=== PATIENT | female | born 1980 | race Caucasian/White ===

== ENCOUNTER 2017-04-04 02:41 | Emergency (ER) | payer BC, OTHER ==
[2017-04-04 02:49] VITALS: BP 113/68; PULSE 84; RESP 18
[2017-04-04] MEDS ORDERED: IPRATROPIUM-ALBUTEROL 3 ML NEB INHALATION STA (02:56)
[2017-04-04] MEDS ORDERED: CHLORPHEN-HYDROcod 8-10mg/5ml 5 ML ORAL.SYRG PO STA (02:56)
[2017-04-04] MEDS ORDERED: ACETAMINOPHEN TAB 500 MG TAB PO STA (02:57)
--- NOTE | 2017-04-04 03:18 | XR ---
EXAM: XR Chest, 2 Views CLINICAL HISTORY: Cough/fever TECHNIQUE: Frontal and lateral views of the chest. COMPARISON: No relevant prior studies available. FINDINGS: Lungs: Unremarkable. No consolidation. Pleural space: Unremarkable. No pneumothorax. Heart: Unremarkable. No cardiomegaly. Mediastinum: Unremarkable. Bones/joints: Unremarkable. Upper abdomen: Gas-filled splenic flexure is noted without evidence of abnormal distention. Surgical clips are seen in the right upper quadrant, likely from prior cholecystectomy. IMPRESSION: No acute findings.
--- NOTE | 2017-04-04 03:23 | ED ---
URI HPI - General Chief Complaint: Upper Respiratory Infection Stated Complaint: cough Time Seen by Provider: 04/04/17 02:52 Source: patient, RN notes reviewed Mode of arrival: ambulatory Limitations: no limitations - History of Present Illness Initial Comments: 36-year-old female presented emergency department for cough and cold like symptoms for last 3-4 days. Patient states symptoms progressively getting worse. Patient was seen at [facility] and was diagnosed with acute bronchitis. Patient was given azithromycin, Tessalon Perles. She states the cough is worst part of her symptoms. She states she cannot stop coughing. Patient is a smoker. Patient denies any known fever states that she's felt hot and cold. Patient has low-grade temperature. Patient denies any neck pain, neck stiffness, headache or dizziness. Denies any ear pain, sore throat, nausea vomiting diarrhea constipation. - Related Data Previous Rx's Medication Instructions Recorded CHLORPHEN-HYDROcod 8-10mg/5ml 5 ml PO Q12HR #120 ml 04/04/17 [Tussionex] methylPREDNISolone [Medrol Dose 4 mg PO DIRECTED #1 pack 04/04/17 Pack] Allergies Allergy/AdvReac Type Severity Reaction Status Date / Time Penicillins Allergy Unknown Verified 04/04/17 02:49 Childhood Review of Systems ROS Statement: Those systems with pertinent positive or pertinent negative responses have been documented in the HPI. ROS Other: All systems not noted in ROS Statement are negative. Past Medical History Past Medical History: GERD/Reflux Additional Past Medical History / Comment(s): recent MRI "showed something" per pt., c/o abd. pain & cramping when eats, past hx. heart murmur, 2 teeth pulled last week History of Any Multi-Drug Resistant Organisms: None Reported Past Surgical History: Cholecystectomy, Tubal Ligation, Uterine Ablation Additional Past Surgical History / Comment(s): uterine ablation Past Anesthesia/Blood Transfusion Reactions: Postoperative Nausea & Vomiting ( PONV) Additional Past Anesthesia/Blood Transfusion Reaction / Comment(s): slow to wake up Past Psychological History: No Psychological Hx Reported Smoking Status: Current every day smoker Past Alcohol Use History: Rare Past Drug Use History: None Reported General Exam Limitations: no limitations General appearance: alert, in no apparent distress Head exam: Present: atraumatic, normocephalic, normal inspection Eye exam: Present: normal appearance, PERRL, EOMI. Absent: scleral icterus, conjunctival injection, periorbital swelling ENT exam: Present: normal exam, normal oropharynx, mucous membranes moist, TM's normal bilaterally, normal external ear exam Neck exam: Present: normal inspection, full ROM. Absent: tenderness, meningismus, lymphadenopathy Respiratory exam: Present: wheezes. Absent: normal lung sounds bilaterally, respiratory distress, rales, rhonchi, stridor Cardiovascular Exam: Present: regular rate, normal rhythm, normal heart sounds. Absent: systolic murmur, diastolic murmur, rubs, gallop, clicks Neurological exam: Present: alert, oriented X3, CN II-XII intact Skin exam: Present: warm, dry, intact, normal color. Absent: rash Course Vital Signs 04/04/17 04/04/17 02:46 03:16 Temperature 100.4 F H Pulse Rate 84 84 Respiratory 18 Rate Blood Pressure 113/68 O2 Sat by Pulse 96 Oximetry Medical Decision Making - Medical Decision Making 36-year-old female presented was from for cough and cold-like symptoms. Patient 's chest x-ray does not show acute abnormality. Patient has acute bronchitis, nicotine dependence. Patient be given tussinex cough syrup. Patient given steroids for her bronchitis. Disposition Clinical Impression: Bronchitis Disposition: HOME SELF-CARE Condition: Stable Instructions: Acute Bronchitis (ED) Additional Instructions: Please return to the Emergency Department if symptoms worsen or any other concerns. Prescriptions: CHLORPHEN-HYDROcod 8-10mg/5ml [Tussionex] 5 ml PO Q12HR #120 ml methylPREDNISolone [Medrol Dose Pack] 4 mg PO DIRECTED #1 pack Referrals: Rossi Pena DO [Primary Care Provider] - 1-2 days Time of Disposition: 03:23
[2017-04-04 03:33] VITALS: TEMP 99
== END 2017-04-04 03:31 | disposition home or self-care (01) ==
LOC: EC 02:41
DX: J20.9 Acute bronchitis, unspecified (principal); F17.200 Nicotine dependence, unspecified, uncomplicated; Z88.0 Allergy status to penicillin
CPT/HCPCS: 71020; 94640; 99283

== ENCOUNTER → 2017-12-31 | Outpatient (CLI) | payer OTHER ==
--- NOTE | 2017-12-31 19:37 | US ---
EXAMINATION TYPE: US thyroid st tissue head/neck DATE OF EXAM: 12/31/2017 COMPARISON: 04/29/2016 CLINICAL HISTORY: E04.1 THYROID NODULE. follow up nodules, difficult swallowing, no thyroid medicatio n GLAND SIZE: Right Lobe: 5.2 x 2.1 x 2.2 cm Overall Parenchyma: homogenous Left Lobe: 5.2 x 1.9 x 1.8 cm Overall Parenchyma: homogeneous Isthmus Thickness: 0.4 cm NODULES RIGHT: # of nodules measured on right: 2 1. 0.7 X 0.6 x 0.5 cm hypoechoic solid nodule at the upper pole with well-defined margins. This no dule is taller than wide and shows intranodular vascularity. Prior size: 0.8 x 0.5 x 0.6 cm 2. 0.5 X 0.3 x 0.3 cm hypoechoic cystic nodule at the lower pole with well-defined margins. This no dule is taller than wide and shows no intranodular vascularity. Prior size: 0.3 x 0.3 x 0.3 cm LEFT: # of nodules measured on left: 1 1. 0.5 X 0.4 x 0.3 cm hypoechoic nodule at the lower pole with well-defined margins. This nodule i s taller than wide and shows no intranodular vascularity. Prior size: 0.4 x 0.4 x 0.3 cm ISTHMUS: # of nodules measured in the isthmus: 0 Bilateral neck scanned, no evidence of lymphadenopathy. Bilateral thyroid lobes appear enlarged IMPRESSION: Multinodular goiter. No dominant thyroid mass. There is overall no adverse change compared to old birgitnahed xavier
== END | disposition home or self-care (01) ==
LOC: RADUSWWP 16:41
PROVIDERS: ATTEND Family Medicine
DX: E04.2 Nontoxic multinodular goiter (principal)
CPT/HCPCS: 76536

== ENCOUNTER → 2018-02-23 | Outpatient (CLI) | payer OTHER ==
--- NOTE | 2018-02-24 12:06 | NM ---
EXAMINATION TYPE: NM thyroid image w uptake DATE OF EXAM: 02/24/2018 COMPARISON: NONE HISTORY: Localized swelling mass and lump TECHNIQUE: Thyroid iodine images performed after the oral administration of 289 uCi 1-123 Capsule. FINDINGS: There is normal distribution of activity throughout the gland. Thyroid uptake appears jillian l. Suprasternal notch is marked. Suspicious photopenic defect or focal hot nodules not identified. IMPRESSION: Normal thyroid scan and uptake.
== END | disposition home or self-care (01) ==
LOC: RADNMMAIN 10:41
PROVIDERS: ATTEND Family Medicine
DX: E04.1 Nontoxic single thyroid nodule (principal); Z88.0 Allergy status to penicillin; Z88.8 Allergy status to other drugs, medicaments and biological substances
CPT/HCPCS: 78014; A9516

== ENCOUNTER 2018-05-16 16:58 | Emergency (ER) | payer OTHER ==
[2018-05-16 17:05] VITALS: RESP 18
[2018-05-16 18:09] LABS: Basophils # (A) 0.1 k/uL (0-0.2); Basophils % (A) 1 %; Eosinophils # (A) 0.1 k/uL (0-0.7); Eosinophils % (A) 2 %; HCT 43.2 % (34.0-46.0); HGB 13.8 gm/dL (11.4-16.0); Lymphocytes # (A) 2.6 k/uL (1.0-4.8); Lymphocytes % (A) 41 %; MCH 27.8 pg (25.0-35.0); MCHC 31.9 g/dL (31.0-37.0); MCV 87.1 fL (80.0-100.0); Mean Platelet Volume 6.5; Monocytes # (A) 0.3 k/uL (0-1.0); Monocytes % (A) 5 %; Neutrophils # (A) 3.2 k/uL (1.3-7.7); Neutrophils % (A) 50 %; Platelet Count 289 k/uL (150-450); RBC 4.97 m/uL (3.80-5.40); RDW 12.5 % (11.5-15.5); WBC 6.4 k/uL (3.8-10.6)
[2018-05-16 18:19] LABS: INR 1.2 (<1.2); Prothrombin Time 11.3 sec (9.0-12.0)
[2018-05-16 18:23] LABS: ALT 27 U/L (9-52); AST 18 U/L (14-36); Albumin 4.3 g/dL (3.5-5.0); Alkaline Phosphatase 42 U/L (38-126); Anion Gap 10 mmol/L; Blood Urea Nitrogen 6 mg/dL (7-17); Calcium 9.1 mg/dL (8.4-10.2); Carbon Dioxide 26 mmol/L (22-30); Chloride 104 mmol/L (98-107); Glucose 103 mg/dL (74-99); Magnesium 1.9 mg/dL (1.6-2.3); Potassium 3.4 mmol/L (3.5-5.1); Sodium 140 mmol/L (137-145); Total Bilirubin 0.3 mg/dL (0.2-1.3); Total Protein 6.6 g/dL (6.3-8.2)
--- NOTE | 2018-05-16 18:23 | XR ---
EXAMINATION TYPE: XR chest 2V DATE OF EXAM: 05/16/2018 COMPARISON: 04/04/2017 HISTORY: Chest pain TECHNIQUE: Frontal and lateral views of the chest are obtained. FINDINGS: Heart and mediastinum are normal. Lungs are clear. Diaphragm is normal. Bony thorax appear s normal. IMPRESSION: Normal chest. No change.
[2018-05-16 18:24] LABS: Creatine Kinase 64 U/L (30-135)
[2018-05-16 18:48] LABS: Creatine Kinase MB 0.5 ng/mL (0.0-2.4); Troponin I <0.012 ng/mL (0.000-0.034)
--- NOTE | 2018-05-16 19:17 | ED ---
General Adult HPI - General Chief complaint: Chest Pain Stated complaint: Chest Pain Time Seen by Provider: 05/16/18 17:11 Source: patient Mode of arrival: ambulatory Limitations: no limitations - History of Present Illness Initial comments: Umm is a 38-year-old female who presents the emergency department today for evaluation of intermittent chest pain and palpitations. Patient reports she's been experiencing this intermittently for approximately 4 months, she was evaluated by her primary care physician for this and was given propanolol to take as needed for palpitations. Patient reports that over the past week she's had multiple episodes of feeling as though her heart was racing and beating very fast. She reports feeling a tightness in her chest is experiencing these palpitations. These episodes occur without provocation, they tend to be more frequent at nighttime when she is laying in bed. She cannot identify any exacerbating or relieving factors. She has taken the propanolol not every time and has only minimal improvement. Opticians are not associated with any diaphoresis or near syncope. The patient has no cardiac history, no family history of early cardiac disease. She has no history of DVT or PE in the past. No family history of clotting disorder that she is aware of. Patient does report she has a history of thyroid disorder but does not know what the diagnosis or medication is, she believes she has an overactive thyroid. - Related Data Home Medications Medication Instructions Recorded Confirmed Acetaminophen [Tylenol] 500 mg PO Q4-6H PRN 05/16/18 05/16/18 Propranolol HCl 40 mg PO BID 05/16/18 05/16/18 Allergies Allergy/AdvReac Type Severity Reaction Status Date / Time metoclopramide [From Reglan] Allergy Hallucinati Verified 05/16/18 17:58 ons Penicillins Allergy Unknown Verified 05/16/18 17:58 Childhood Review of Systems ROS Statement: Those systems with pertinent positive or pertinent negative responses have been documented in the HPI. ROS Other: All systems not noted in ROS Statement are negative. Past Medical History Past Medical History: GERD/Reflux, Thyroid Disorder Additional Past Medical History / Comment(s): recent MRI "showed something" per pt., c/o abd. pain & cramping when eats, past hx. heart murmur, History of Any Multi-Drug Resistant Organisms: None Reported Past Surgical History: Cholecystectomy, Tubal Ligation, Uterine Ablation Additional Past Surgical History / Comment(s): uterine ablation Past Anesthesia/Blood Transfusion Reactions: Postoperative Nausea & Vomiting ( PONV) Additional Past Anesthesia/Blood Transfusion Reaction / Comment(s): slow to wake up Past Psychological History: No Psychological Hx Reported Smoking Status: Current every day smoker Past Alcohol Use History: Rare Past Drug Use History: None Reported General Exam - General Exam Comments Initial Comments: GENERAL: Patient is well-developed and well-nourished. Patient is nontoxic and well- hydrated and is in no distress. HENT: Normocephalic, Atraumatic. Neck is soft and supple. No significant lymphadenopathy is noted. Oropharynx is clear. Moist mucous membranes. Neck has full range of motion without eliciting any pain. Thyroid is not palpable EYES: The sclera were anicteric and conjunctiva were pink and moist. Extraocular movements were intact and pupils were equal round and reactive to light. Eyelids were unremarkable. PULMONARY: Unlabored respirations. Good breath sounds bilaterally. No audible rales rhonchi or wheezing was noted. CARDIOVASCULAR: There is a regular rate and rhythm without any murmurs gallops or rubs. ABDOMEN: Soft and nontender with normal bowel sounds. SKIN: Skin is clear with no lesions or rashes and otherwise unremarkable. NEUROLOGIC: Patient is alert and oriented x3. Cranial nerves II through XII are grossly intact. Motor and sensory are also intact. Normal speech, volume and content. Symmetrical smile. MUSCULOSKELETAL: Normal extremities with adequate strength and full range of motion. No lower extremity swelling or edema. No calf tenderness. LYMPHATICS: No significant lymphadenopathy is noted PSYCHIATRIC: Normal psychiatric evaluation. Limitations: no limitations Limitations: no limitations Course Vital Signs 05/16/18 05/16/18 05/16/18 17:01 17:12 19:37 Temperature 98.4 F 98.5 F Pulse Rate 70 75 65 Respiratory 18 18 18 Rate Blood Pressure 143/79 132/79 114/58 O2 Sat by Pulse 99 99 99 Oximetry EKG Findings - EKG Comments: EKG Findings:: EKG obtained at 1714, rate is 74, rhythm is sinus, there is normal axis, normal intervals, ID 152, QRS 80, QTC 450, there are no acute ST elevations or depressions no evidence of acute ischemia or infarction. There is some motion artifact noted. Medical Decision Making - Medical Decision Making Patient was seen and evaluated, history is obtained from the patient EKG obtained in triage was evaluated, sinus rhythm with a rate is 74, normal axis, normal intervals, no acute ST elevations or depressions, no evidence of acute ischemia or infarction. Cardiac workup was ordered Labs with no acute findings, no elevation of troponin or d-dimer, no leukocytosis or significant anemia noted CXR with no acute findings Patient's heart score 1 for smoking Results were discussed with patient who expresses relief, questions pertaining to care were answered to the best of my ability, return parameters were discussed, I advised the patient to a local primary care physician or cardiology for further evaluation. - Lab Data Result diagrams: 05/16/18 17:20 05/16/18 17:20 Lab Results 05/16/18 05/16/18 05/16/18 Range/Units 17:20 17:20 17:20 WBC 6.4 (3.8-10.6) k/uL RBC 4.97 (3.80-5.40) m/uL Hgb 13.8 (11.4-16.0) gm/dL Hct 43.2 (34.0-46.0) % MCV 87.1 (80.0-100.0) fL MCH 27.8 (25.0-35.0) pg MCHC 31.9 (31.0-37.0) g/dL RDW 12.5 (11.5-15.5) % Plt Count 289 (150-450) k/uL Neutrophils % 50 % Lymphocytes % 41 % Monocytes % 5 % Eosinophils % 2 % Basophils % 1 % Neutrophils # 3.2 (1.3-7.7) k/uL Lymphocytes # 2.6 (1.0-4.8) k/uL Monocytes # 0.3 (0-1.0) k/uL Eosinophils # 0.1 (0-0.7) k/uL Basophils # 0.1 (0-0.2) k/uL PT (9.0-12.0) sec INR (<1.2) APTT (22.0-30.0) sec Sodium 140 (137-145) mmol/L Potassium 3.4 L (3.5-5.1) mmol/L Chloride 104 (98-107) mmol/L Carbon Dioxide 26 (22-30) mmol/L Anion Gap 10 mmol/L BUN 6 L (7-17) mg/dL Creatinine 0.60 (0.52-1.04) mg/dL Est GFR (CKD-EPI)AfAm >90 (>60 ml/min/1.73 sqM) Est GFR (CKD-EPI)NonAf >90 (>60 ml/min/1.73 sqM) Glucose 103 H (74-99) mg/dL Calcium 9.1 (8.4-10.2) mg/dL Magnesium 1.9 (1.6-2.3) mg/dL Total Bilirubin 0.3 (0.2-1.3) mg/dL AST 18 (14-36) U/L ALT 27 (9-52) U/L Alkaline Phosphatase 42 (38-126) U/L Total Creatine Kinase 64 (30-135) U/L CK-MB (CK-2) 0.5 (0.0-2.4) ng/mL CK-MB (CK-2) Rel Index 0.8 Troponin I <0.012 (0.000-0.034) ng/mL Total Protein 6.6 (6.3-8.2) g/dL Albumin 4.3 (3.5-5.0) g/dL TSH 1.120 (0.465-4.680) mIU/L 05/16/18 Range/Units 17:20 WBC (3.8-10.6) k/uL RBC (3.80-5.40) m/uL Hgb (11.4-16.0) gm/dL Hct (34.0-46.0) % MCV (80.0-100.0) fL MCH (25.0-35.0) pg MCHC (31.0-37.0) g/dL RDW (11.5-15.5) % Plt Count (150-450) k/uL Neutrophils % % Lymphocytes % % Monocytes % % Eosinophils % % Basophils % % Neutrophils # (1.3-7.7) k/uL Lymphocytes # (1.0-4.8) k/uL Monocytes # (0-1.0) k/uL Eosinophils # (0-0.7) k/uL Basophils # (0-0.2) k/uL PT 11.3 (9.0-12.0) sec INR 1.2 H (<1.2) APTT 27.0 (22.0-30.0) sec Sodium (137-145) mmol/L Potassium (3.5-5.1) mmol/L Chloride (98-107) mmol/L Carbon Dioxide (22-30) mmol/L Anion Gap mmol/L BUN (7-17) mg/dL Creatinine (0.52-1.04) mg/dL Est GFR (CKD-EPI)AfAm (>60 ml/min/1.73 sqM) Est GFR (CKD-EPI)NonAf (>60 ml/min/1.73 sqM) Glucose (74-99) mg/dL Calcium (8.4-10.2) mg/dL Magnesium (1.6-2.3) mg/dL Total Bilirubin (0.2-1.3) mg/dL AST (14-36) U/L ALT (9-52) U/L Alkaline Phosphatase (38-126) U/L Total Creatine Kinase (30-135) U/L CK-MB (CK-2) (0.0-2.4) ng/mL CK-MB (CK-2) Rel Index Troponin I (0.000-0.034) ng/mL Total Protein (6.3-8.2) g/dL Albumin (3.5-5.0) g/dL TSH (0.465-4.680) mIU/L Disposition Clinical Impression: Heart palpitations Disposition: HOME SELF-CARE Condition: Good Instructions: Palpitations (ED) Is patient prescribed a controlled substance at d/c from ED?: No Referrals: Yumiko Govea MD [Primary Care Provider] - 1-2 days Henrique Joya MD [STAFF PHYSICIAN] - 1-2 days Time of Disposition: 19:17
[2018-05-16 19:38] VITALS: BP 114/58; PULSE 65; TEMP 98.5
== END 2018-05-16 19:37 | disposition home or self-care (01) ==
LOC: EC 16:58
DX: R00.2 Palpitations (principal); R07.9 Chest pain, unspecified; F17.200 Nicotine dependence, unspecified, uncomplicated; Z79.899 Other long term (current) drug therapy; Z88.0 Allergy status to penicillin; Z88.8 Allergy status to other drugs, medicaments and biological substances
CPT/HCPCS: 36415; 71046; 80053; 82550; 82553; 83735; 84443; 84484; 85025; 85610; 85730; 93005; 99285

== ENCOUNTER → 2018-11-23 | Outpatient (CLI) | payer OTHER ==
--- NOTE | 2018-11-23 21:10 | MR ---
EXAMINATION TYPE: MR brain wo/w con DATE OF EXAM: 11/23/2018 COMPARISON: CT brain May 25, 2014 HISTORY: Diplopia TECHNIQUE: Multiplanar, multisequence images of the brain and brainstem is performed without and with IV contras t, utilizing 5.5 mL intravenous Gadavist . FINDINGS: Diffusion weighted images demonstrate no evidence of a recent infarct or other diffusion ab normality. There is no extra-axial fluid collection or significant white matter signal abnormality. The ventricular system and cisternal spaces are normal in size and appearance. The brain volume is age appropriate. Midline structures demonstrate normal morphology. The craniocervical junction appears within normal limits. Post contrast images demonstrate no abnormal enhancement. The dural venous sinuses appear pa tent. Mild eccentric mucosal thickening bilateral maxillary sinuses is redemonstrated. Globes are int act bilaterally. Rectus muscles are symmetric and felt within normal limits. IMPRESSION: No significant finding is seen to account for patient's symptoms of diplopia
== END | disposition home or self-care (01) ==
LOC: RADMRIMAIN 16:35
PROVIDERS: ATTEND Ophthalmology
DX: H53.2 Diplopia (principal)
CPT/HCPCS: 70553; A9585

== ENCOUNTER → 2019-07-19 | Outpatient (CLI) | payer OTHER ==
--- NOTE | 2019-07-19 13:23 | NM ---
EXAMINATION TYPE: NM gastric emptying static DATE OF EXAM: 07/19/2019 COMPARISON: NONE HISTORY: Abdominal pain Following administration of 2.1 mCi Tc 99m Sulfur Colloid with 4 oz. scrambled eggs, 1 piece of butte red toast, projection images of the abdomen were obtained 10 minutes post ingestion. Patient Emptying Values 1 Hour 56 % 2 Hours 70 % 3 Hours 89 % 4 Hours 99 % Gastroesophageal reflux: None IMPRESSION: Gastric emptying time: Normal. No scintigraphic evidence of gastroparesis. Gastroesophageal reflux: None Gastric emptying normal percentage values: 30 minutes: <70% of retention (> 30% emptying) suggests abnormally fast emptying. 60 minutes: <90% retention (>10% emptying) is normal; less than 30% retention (>70% emptying) suggest s abnormally rapid emptying. 90 minutes: <65% retention (> 35% emptying) is normal. 120 minutes: <60% retention (> 40% emptying) is normal. 180 minutes: <30% retention (> 70% emptying) is normal. Gastric emptying T-1/2: Solid: The normal range is 60-105 minutes Liquid only: Normal range is 10-45 minutes. Liquid only-children: At 60 minutes, normal range is 44-58 % . Liquid only-infants: At 60 minutes, normal range is 32-64 %. Additional references: Gastric Emptying Scintigraphy [email or web address]://[email or web address]
== END | disposition home or self-care (01) ==
LOC: RADNMMAIN 06:56
PROVIDERS: ATTEND Family Medicine
DX: R10.84 Generalized abdominal pain (principal)
CPT/HCPCS: 78264; A9541

== ENCOUNTER → 2019-12-04 | Outpatient (CLI) | payer OTHER | END | disposition home or self-care (01) | DX: R92.8 Other abnormal and inconclusive findings on diagnostic imaging of breast (principal) | CPT/HCPCS: 77062; 77066 ==

== ENCOUNTER 2021-05-25 15:27 | Emergency (ER) | payer OTHER ==
[2021-05-25 15:46] VITALS: BP 111/70; PULSE 83; RESP 18; TEMP 98.1
[2021-05-25] MEDS ORDERED: KETOROLAC 15 MG/ML 1 ML VIAL IVP STA (15:57)
[2021-05-25] MEDS ORDERED: SODIUM CHLORIDE 0.9% 1,000 ML IV STA (15:57)
[2021-05-25 16:30] LABS: Appearance,Urine Clear (Clear); Basophils # (A) 0.1 k/uL (0-0.2); Basophils % (A) 1 %; Bilirubin,Urine Negative (Negative); Blood,Urine Negative (Negative); Color,Urine Colorless; Eosinophils # (A) 0.2 k/uL (0-0.7); Eosinophils % (A) 3 %; Glucose,Urine (UA) Negative (Negative); HCT 45.7 % (34.0-46.0); HGB 15.2 gm/dL (11.4-16.0); Ketones,Urine Negative (Negative); Leukocyte Esterase,Urine Negative (Negative); Lymphocytes % (A) 40 %; MCH 28.8 pg (25.0-35.0); MCHC 33.3 g/dL (31.0-37.0); MCV 86.4 fL (80.0-100.0); Mean Platelet Volume 7.2; Monocytes # (A) 0.4 k/uL (0-1.0); Monocytes % (A) 5 %; Neutrophils # (A) 3.7 k/uL (1.3-7.7); Neutrophils % (A) 50 %; Nitrite,Urine Negative (Negative); Platelet Count 344 k/uL (150-450); Protein,Urine Negative (Negative); RBC 5.29 m/uL (3.80-5.40); RDW 12.6 % (11.5-15.5); Specific Gravity,Urine 1.002 (1.001-1.035); Urobilinogen,Urine <2.0 mg/dL (<2.0); WBC 7.6 k/uL (3.8-10.6)
[2021-05-25 16:37] LABS: ALT 9 U/L (4-34); AST 22 U/L (14-36); African American GFR (CKD) >90 (>60 ml/min/1.73 sqM); Albumin 4.8 g/dL (3.5-5.0); Alkaline Phosphatase 63 U/L (38-126); Amylase 55 U/L (30-110); Anion Gap 10 mmol/L; Blood Urea Nitrogen 6 mg/dL (7-17); Calcium 9.8 mg/dL (8.4-10.2); Carbon Dioxide 24 mmol/L (22-30); Chloride 104 mmol/L (98-107); Glucose 93 mg/dL (74-99); Lipase 102 U/L (23-300); Non-African American GFR(CKD) >90 (>60 ml/min/1.73 sqM); Potassium 4.2 mmol/L (3.5-5.1); Sodium 138 mmol/L (137-145); Total Bilirubin 0.3 mg/dL (0.2-1.3); Total Protein 7.4 g/dL (6.3-8.2)
--- NOTE | 2021-05-25 18:09 | CT ---
EXAMINATION TYPE: CT abdomen pelvis w con DATE OF EXAM: 05/25/2021 COMPARISON: 11/23/2014 HISTORY: Abdomen pain CT DLP: 697.5 mGycm Automated exposure control for dose reduction was used. CONTRAST: Performed with IV Contrast, patient injected with 100 mL of Isovue 300. Images from the diaphragm to the floor the pelvis with IV contrast. Lung bases are clear of infiltrate. There is no pleural effusion. Heart size is normal. There is no p ericardial effusion. There is 1 cm cyst anterior right lobe of the liver. There are clips from cholec ystectomy. The bile ducts are nondilated. Spleen stomach pancreas appear intact. There is no adrenal mass. Kidneys show satisfactory contrast opacification. There is no hydronephrosi s. Ureters are not dilated. There is no retroperitoneal adenopathy. Bladder distends smoothly. There is no inguinal hernia. There is some low density free fluid in the pelvis. Uterus is anteverted and a ppears normal. I see no pelvic mass. There is probably a 2 cm cyst on the right ovary. Delayed images show normal renal excretion. There is no mesenteric edema. There is no ascites or free air. Appendix is not definitely seen. There is no sign of thickened appendix. Cecum is low in the pelvis. The lumbar vertebra have normal alignment. Disc spaces are fairly normal. There is no compression fra cture. Posterior elements are intact. Bony pelvis is intact. Hip joints are intact. IMPRESSION: There is some low density free fluid in the pelvis which is increased compared to old exam. There is decrease in the right ovarian cyst compared to old exam.
--- NOTE | 2021-05-25 18:30 | ED ---
Abdominal Pain HPI - General Chief Complaint: Abdominal Pain Stated Complaint: abd pain, bowel problem Time Seen by Provider: 05/25/21 15:49 Source: patient, RN notes reviewed Mode of arrival: ambulatory Limitations: no limitations - History of Present Illness Initial Comments: Patient is a 41-year-old female that presents to the emergency department co mplaining of a two-week history of not being able to have bowel movement. She notes that she does go several days without having a bowel movement regularly but it seems to be worse lately. She notes she does have a history of a cholecystectomy. She also notes that she had her tubes tied. She came in due to concerns for possible constipation or blockage. She was in no apparent distress or pain while sitting up in bed during exam and interview. She denied any chest pain first breath headache nausea vomiting diarrhea constipation fever fatigue chills hematochezia melena. - Related Data Home Medications Medication Instructions Recorded Confirmed No Known Home Medications 05/25/21 05/25/21 Allergies Allergy/AdvReac Type Severity Reaction Status Date / Time metoclopramide [From Reglan] Allergy Hallucinati Verified 05/25/21 17:32 ons Penicillins Allergy Unknown Verified 05/25/21 17:32 Childhood Review of Systems ROS Statement: Those systems with pertinent positive or pertinent negative responses have been documented in the HPI. ROS Other: All systems not noted in ROS Statement are negative. Past Medical History Past Medical History: GERD/Reflux, Thyroid Disorder Additional Past Medical History / Comment(s): recent MRI "showed something" per pt., c/o abd. pain & cramping when eats, past hx. heart murmur, History of Any Multi-Drug Resistant Organisms: None Reported Past Surgical History: Cholecystectomy, Tubal Ligation, Uterine Ablation Additional Past Surgical History / Comment(s): uterine ablation Past Anesthesia/Blood Transfusion Reactions: Postoperative Nausea & Vomiting (PONV) Additional Past Anesthesia/Blood Transfusion Reaction / Comment(s): slow to wake up Past Psychological History: No Psychological Hx Reported Smoking Status: Current every day smoker Past Alcohol Use History: Rare Past Drug Use History: None Reported General Exam Limitations: no limitations General appearance: alert, in no apparent distress Head exam: Present: atraumatic, normocephalic, normal inspection Eye exam: Present: normal appearance, PERRL, EOMI. Absent: scleral icterus, conjunctival injection, periorbital swelling Neck exam: Present: normal inspection Respiratory exam: Present: normal lung sounds bilaterally. Absent: respiratory distress, wheezes, rales, rhonchi, stridor Cardiovascular Exam: Present: regular rate, normal rhythm, normal heart sounds. Absent: systolic murmur, diastolic murmur, rubs, gallop, clicks GI/Abdominal exam: Present: soft, normal bowel sounds. Absent: distended, tenderness, guarding, rebound, rigid Extremities exam: Present: normal inspection, full ROM, normal capillary refill. Absent: tenderness, pedal edema, joint swelling, calf tenderness Neurological exam: Present: alert, oriented X3 Psychiatric exam: Present: normal affect, normal mood Skin exam: Present: warm, dry, intact, normal color. Absent: rash Course Vital Signs 05/25/21 15:45 Temperature 98.1 F Pulse Rate 83 Respiratory 18 Rate Blood Pressure 111/70 O2 Sat by Pulse 100 Oximetry Medical Decision Making - Medical Decision Making 41-year-old female complaining of a two-week history of no bowel movement. Physical exam patient was nontender nondistended. Labs, 1 L normal saline, CT the abdomen and pelvis, 15 mg Toradol ordered. Labs unremarkable. CT of the abdomen pelvis shows minimal free fluid in the pelvis and a decreased right ovarian cyst. Case discussed with Dr. Cisneros, patient discharge home with follow-up to primary care and her surgeon. - Lab Data Result diagrams: 05/25/21 16:08 05/25/21 16:08 Lab Results 05/25/21 05/25/21 05/25/21 Range/Units 16:08 16:08 16:08 WBC 7.6 (3.8-10.6) k/uL RBC 5.29 (3.80-5.40) m/uL Hgb 15.2 (11.4-16.0) gm/dL Hct 45.7 (34.0-46.0) % MCV 86.4 (80.0-100.0) fL MCH 28.8 (25.0-35.0) pg MCHC 33.3 (31.0-37.0) g/dL RDW 12.6 (11.5-15.5) % Plt Count 344 (150-450) k/uL MPV 7.2 Neutrophils % 50 % Lymphocytes % 40 % Monocytes % 5 % Eosinophils % 3 % Basophils % 1 % Neutrophils # 3.7 (1.3-7.7) k/uL Lymphocytes # 3.0 (1.0-4.8) k/uL Monocytes # 0.4 (0-1.0) k/uL Eosinophils # 0.2 (0-0.7) k/uL Basophils # 0.1 (0-0.2) k/uL Sodium 138 (137-145) mmol/L Potassium 4.2 (3.5-5.1) mmol/L Chloride 104 (98-107) mmol/L Carbon Dioxide 24 (22-30) mmol/L Anion Gap 10 mmol/L BUN 6 L (7-17) mg/dL Creatinine 0.65 (0.52-1.04) mg/dL Est GFR (CKD-EPI)AfAm >90 (>60 ml/min/1.73 sqM) Est GFR (CKD-EPI)NonAf >90 (>60 ml/min/1.73 sqM) Glucose 93 (74-99) mg/dL Plasma Lactic Acid Ru (0.7-2.0) mmol/L Calcium 9.8 (8.4-10.2) mg/dL Total Bilirubin 0.3 (0.2-1.3) mg/dL AST 22 (14-36) U/L ALT 9 (4-34) U/L Alkaline Phosphatase 63 (38-126) U/L Total Protein 7.4 (6.3-8.2) g/dL Albumin 4.8 (3.5-5.0) g/dL Amylase 55 (30-110) U/L Lipase 102 (23-300) U/L Urine Color Colorless Urine Appearance Clear (Clear) Urine pH 7.0 (5.0-8.0) Ur Specific [place] 1.002 (1.001-1.035) Urine Protein Negative (Negative) Urine Glucose (UA) Negative (Negative) Urine Ketones Negative (Negative) Urine Blood Negative (Negative) Urine Nitrite Negative (Negative) Urine Bilirubin Negative (Negative) Urine Urobilinogen <2.0 (<2.0) mg/dL Ur Leukocyte Esterase Negative (Negative) 05/25/21 Range/Units 16:08 WBC (3.8-10.6) k/uL RBC (3.80-5.40) m/uL Hgb (11.4-16.0) gm/dL Hct (34.0-46.0) % MCV (80.0-100.0) fL MCH (25.0-35.0) pg MCHC (31.0-37.0) g/dL RDW (11.5-15.5) % Plt Count (150-450) k/uL MPV Neutrophils % % Lymphocytes % % Monocytes % % Eosinophils % % Basophils % % Neutrophils # (1.3-7.7) k/uL Lymphocytes # (1.0-4.8) k/uL Monocytes # (0-1.0) k/uL Eosinophils # (0-0.7) k/uL Basophils # (0-0.2) k/uL Sodium (137-145) mmol/L Potassium (3.5-5.1) mmol/L Chloride (98-107) mmol/L Carbon Dioxide (22-30) mmol/L Anion Gap mmol/L BUN (7-17) mg/dL Creatinine (0.52-1.04) mg/dL Est GFR (CKD-EPI)AfAm (>60 ml/min/1.73 sqM) Est GFR (CKD-EPI)NonAf (>60 ml/min/1.73 sqM) Glucose (74-99) mg/dL Plasma Lactic Acid Ru 1.0 (0.7-2.0) mmol/L Calcium (8.4-10.2) mg/dL Total Bilirubin (0.2-1.3) mg/dL AST (14-36) U/L ALT (4-34) U/L Alkaline Phosphatase (38-126) U/L Total Protein (6.3-8.2) g/dL Albumin (3.5-5.0) g/dL Amylase (30-110) U/L Lipase (23-300) U/L Urine Color Urine Appearance (Clear) Urine pH (5.0-8.0) Ur Specific [place] (1.001-1.035) Urine Protein (Negative) Urine Glucose (UA) (Negative) Urine Ketones (Negative) Urine Blood (Negative) Urine Nitrite (Negative) Urine Bilirubin (Negative) Urine Urobilinogen (<2.0) mg/dL Ur Leukocyte Esterase (Negative) - Radiology Data Radiology results: report reviewed, image reviewed CT of the abdomen and pelvis: There is some low-density free fluid in the pelvis which is increased compared to old exam. There is decreased in the right ovarian cyst compared to old exam. Disposition Clinical Impression: Abdominal pain, Constipation Disposition: HOME SELF-CARE Condition: Stable Instructions (If sedation given, give patient instructions): Abdominal Pain (ED) Additional Instructions: Please return to the Emergency Department if symptoms worsen or any other concerns. Follow-up primary care 1-2 days. Is patient prescribed a controlled substance at d/c from ED?: No Referrals: None,Stated [Primary Care Provider] - 1-2 days Time of Disposition: 18:31
== END 2021-05-25 18:45 | disposition home or self-care (01) ==
LOC: EC 15:27
DX: K59.00 Constipation, unspecified (principal); K21.9 Gastro-esophageal reflux disease without esophagitis; F17.200 Nicotine dependence, unspecified, uncomplicated; Z88.0 Allergy status to penicillin; Z88.8 Allergy status to other drugs, medicaments and biological substances; Z90.49 Acquired absence of other specified parts of digestive tract; Z98.51 Tubal ligation status
CPT/HCPCS: 99284; 96374; 96361; 36415; 80053; 82150; 83605; 83690; 85025; 81003; 74177; J1885

== ENCOUNTER → 2022-03-19 | Outpatient (CLI) | payer OTHER ==
--- NOTE | 2022-03-25 13:40 | USB ---
Reason for Exam: Clinical finding. Last mammogram was performed 2 year(s) and 3 month(s) ago. Patient History: Menarche at age 11. First Full-Term at age 19. Risk Values: Juliann 5 year model risk: 0.4%. NCI Lifetime model risk: 8.0%. Prior Study Comparison: 04/09/2016 Bilateral Diagnostic Mammogram, [facility]. 12/04/2019 Bilateral Diagnostic Mammogram, [facility]. Tissue Density: The breast tissue is heterogeneously dense. This may lower the sensitivity of mammography. Findings: Analyzed By CAD. Mammogram No discrete nodule or distortion. No suspicious calcifications seen. Technique: Method: Targeted. Findings: Rt axilla palpables: #1 = 0.8 x 0.8 x 0.4cm complex cyst within dermis, #2 = 0.4 x 0.4 x 0.3cm complex cyst within dermis, LT LIQ scan no abnormality seen. Overall Assessment: Benign, BI-RAD 2 Assessment: MG 3D diag mammo w/cad RENA - Bilateral: Incomplete: need additional imaging evaluation, BI-RAD 0. US breast limited BILAT - Bilateral: Benign, BI-RAD 2. Management: Screening Mammogram of both breasts in 1 year. Clinical Correlation A clinical breast exam by your physician is recommended on an annual basis and results should be correlated with mammographic findings. Results were given to the patient verbally at the time of exam. Electronically signed and approved by: Dami Gutierrez M.D. Radiologis
== END | disposition home or self-care (01) ==
LOC: RADMAMWWP 08:51
PROVIDERS: ATTEND Family Medicine
DX: R92.8 Other abnormal and inconclusive findings on diagnostic imaging of breast (principal)
CPT/HCPCS: 77062; 77066

== ENCOUNTER → 2022-04-07 | Outpatient (CLI) | payer OTHER ==
--- NOTE | 2022-04-07 10:21 | XR ---
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 TECHNIQUE: Two radiographs of the abdomen and pelvis were obtained. FINDINGS: Moderate amount of stool is present within the ascending and descending colon. No evidence for bowel obstruction. Surgical clips demonstrated within the right upper quadrant and within the pel vis and along the right aspect of the L1 vertebral body. No acute osseous abnormality. IMPRESSION: Due to the moderate amount of stool remaining within the colon it was determined not to proceed with barium enema at this time. This would increase the risk for false positives and/or significantly limi calixto examination. Patient reports that she could not tolerate the full liquid prep. Advised patient to contact referring physician for alternative bowel prep options.
== END | disposition home or self-care (01) ==
LOC: RADFLMAIN 09:26
PROVIDERS: ATTEND Family Medicine
DX: R19.5 Other fecal abnormalities (principal)
CPT/HCPCS: 74018

== ENCOUNTER → 2022-04-13 | Outpatient (CLI) | payer OTHER ==
--- NOTE | 2022-04-13 12:45 | FL ---
EXAMINATION TYPE: FL barium enema DATE OF EXAM: 04/13/2022 COMPARISON: Correlation CT 05/25/2021 HISTORY: 41-year-old female with constipation and subsequent left-sided abdominal pain. R10.32, left lower quadrant pain. TECHNIQUE: A single contrast barium enema study is performed. A total of 1 minute 19 seconds of flu oroscopic time was utilized during procedure and 41 images obtained. FINDINGS: Scrap Drop Operator view of the abdomen shows retained stool within the right side of the colon. The pat ient reports not being able to tolerate the prep last night. Prominent colonic air is noted. These fi ndings, decision was made to proceed with a single contrast exam. Overall non-obstructive bowel gas p attern. No evidence of any mass or polyp, obstructing, or constricting lesion throughout the colon. Transien t focal peristalsis along the mid ascending colon. Some reflux of contrast is noted into the ileum. N o significant diverticular disease is noted. We note decreased haustrations along the descending and proximal to mid sigmoid colon. Colon remains relatively gassy even by the end of the exam. IMPRESSION: 1. Suboptimal colon prep. Gassy colon. Retained stool on the right. We proceeded with a single contra st study. 2. No constricting lesions or strictures identified. No obvious filling defect given the exam limitat ions. 3. Decreased haustrations along the left side of the colon. The etiology is unclear. Consider chronic cathartic use, sequela of chronic inflammation/inflammatory bowel disease, scleroderma, sequela of o ld ischemia to the left side of the colon, or radiation to the left side of the abdomen. Correlate cl inically to exclude infectious colitis. Consideration can be given to direct visualization.
== END | disposition home or self-care (01) ==
LOC: RADFLMAIN 08:42
PROVIDERS: ATTEND Family Medicine
DX: R10.32 Left lower quadrant pain (principal); R19.5 Other fecal abnormalities
CPT/HCPCS: 74270

== ENCOUNTER → 2022-04-22 | Outpatient (CLI) | payer OTHER ==
--- NOTE | 2022-04-22 15:20 | XR ---
EXAMINATION TYPE: XR abdomen 1V DATE OF EXAM: 04/22/2022 Comparison: 04/07/2022 Clinical History: 41-year-old female LLQ PAIN, CONSTIPATION Findings: This was the director product image for patient's small bowel follow-through which is deferred due to retained b arium throughout the colon from recent enema exam. Gassy distal transverse colon and splenic flexure distends up to 5.0 cm. Mild stool within the right side of the colon. Cholecystectomy clips. No dilat ed small bowel loops. Impression: Gassy transverse colon and splenic flexure. Nonobstructive bowel gas pattern. The small bowel follow- through was deferred due to the retained barium throughout the colon.
== END | disposition home or self-care (01) ==
LOC: RADFLMAIN 08:47
PROVIDERS: ATTEND Family Medicine
DX: R10.32 Left lower quadrant pain (principal); R19.5 Other fecal abnormalities
CPT/HCPCS: 74018

== ENCOUNTER → 2022-05-01 | Outpatient (CLI) | payer OTHER ==
--- NOTE | 2022-05-01 11:19 | FL ---
EXAMINATION TYPE: FL UGI air w small bowel DATE OF EXAM: 05/01/2022 COMPARISON: None HISTORY: Left lower quadrant pain, epigastric pain and bulging TECHNIQUE: Double contrast technique was utilized to evaluate the upper gastrointestinal tract. Follo wing additional oral administration of contrast small bowel follow-through was performed. FINDINGS: 2 minutes 49 seconds fluoroscopy time. 36 images. Esophagus dilates to normal caliber and has a normal contour the gastroesophageal junction. Gastroeso phageal junction opens to normal caliber. No intraluminal or extrarenal defects are evident. Minimal reflux into the distal esophagus was evident during the examination. There is complete stripping of t he esophageal bolus in the horizontal drinking position. Fundus body and antrum stomach are well visualized. No intraluminal or extrarenal defects are evident . Primarily empties into the normally positioned duodenal cap and sweep. There is some duodenal fold hypertrophy within the second portion of the duodenum. Correlate for acute duodenitis. Small bowel follow-through: Transit time to the colon is approximately 40 minutes. Jejunal fold patte rn appears normal. There appears to be some loss of the ileal fold pattern within the mid to distal p ortion. Patient noted some tenderness over the terminal ileum with pressure. Loops of bowel appear f reely mobile during observation and with direct pressure with the inflated balloon paddle. IMPRESSION: 1. Mild gastroesophageal reflux. 2. Clinical consideration for acute duodenitis is recommended. 3. Transit time to the colon of 40 minutes. There is some loss of the ileal fold pattern.
== END | disposition home or self-care (01) ==
LOC: RADFLMAIN 07:58
PROVIDERS: ATTEND Family Medicine
DX: K21.9 Gastro-esophageal reflux disease without esophagitis (principal)
CPT/HCPCS: 74240; 74248

== ENCOUNTER → 2022-07-04 | Outpatient (CLI) | payer OTHER | END | disposition home or self-care (01) | LOC: LABWHC1 09:26 | PROVIDERS: ATTEND Nurse Practitioner | DX: R10.30 Lower abdominal pain, unspecified (principal); R19.8 Other specified symptoms and signs involving the digestive system and abdomen; R93.3 Abnormal findings on diagnostic imaging of other parts of digestive tract; Z72.0 Tobacco use | CPT/HCPCS: 36415; 83516; 86255 ==

== ENCOUNTER 2023-05-19 20:55 | Emergency (ER) | payer OTHER ==
[2023-05-19 21:00] VITALS: BP 144/91; PULSE 76; RESP 16
[2023-05-19 21:13] VITALS: TEMP 98.3
[2023-05-19] MEDS ORDERED: DIPH,PERTUS(ACELL)TETVAC-LF 0.5 ML VIAL IM ONE (21:34)
--- NOTE | 2023-05-19 21:39 | ED ---
General Adult HPI - General Chief complaint: Wound/Laceration Stated complaint: Cut leg- shooting pain Time Seen by Provider: 05/19/23 21:18 Source: patient Mode of arrival: ambulatory Limitations: no limitations - History of Present Illness Initial comments: Dictation was produced using [employer] dictation software. please excuse any grammatical, word or spelling errors. Chief Complaint: 43-year-old female presents emergency department for right mustafa laceration History of Present Illness: Patient's 43-year-old female she was using a box spring frame builder when she accidentally cut her leg. She states that she felt like she punctured her leg. States it happened 3 days ago. Laceration is approximately 3 mm. Patient does not report her last tetanus was updated. Try to use a store-bought liquid bandage however did not feel that her laceration healed very well. The ROS documented in this emergency department record has been reviewed and confirmed by me. Those systems with pertinent positive or negative responses have been documented in the HPI. All other systems are other negative and/or noncontributory. - Related Data Previous Rx's Medication Instructions Recorded Cephalexin [Keflex] 500 mg PO Q6HR 5 Days #20 cap 05/19/23 Allergies Allergy/AdvReac Type Severity Reaction Status Date / Time metoclopramide [From Reglan] Allergy Hallucinati Verified 05/25/21 17:32 ons Penicillins Allergy Unknown Verified 05/25/21 17:32 Childhood Review of Systems ROS Statement: Those systems with pertinent positive or pertinent negative responses have been documented in the HPI. ROS Other: All systems not noted in ROS Statement are negative. Past Medical History Past Medical History: GERD/Reflux, Thyroid Disorder Additional Past Medical History / Comment(s): recent MRI "showed something" per pt., c/o abd. pain & cramping when eats, past hx. heart murmur, History of Any Multi-Drug Resistant Organisms: None Reported Past Surgical History: Cholecystectomy, Tubal Ligation, Uterine Ablation Additional Past Surgical History / Comment(s): uterine ablation Past Anesthesia/Blood Transfusion Reactions: Postoperative Nausea & Vomiting (PONV) Additional Past Anesthesia/Blood Transfusion Reaction / Comment(s): slow to wake up Past Psychological History: No Psychological Hx Reported Smoking Status: Current every day smoker Past Alcohol Use History: Rare Past Drug Use History: None Reported General Exam - General Exam Comments Initial Comments: PHYSICAL EXAM: General Impression: Alert and oriented x3, not in acute distress HEENT: Normocephalic atraumatic, extra-ocular movements intact, pupils equal and reactive to light bilaterally, mucous membranes moist. Cardiovascular: Heart regular rate and rhythm Chest: Able to complete full sentences, no retractions, no tachypnea Musculoskeletal: Pulses present and equal in all extremities, no peripheral edema Motor: no focal deficits noted Neurological: CN II-XII grossly intact, no focal motor or sensory deficits noted Skin: 3 mm superficial laceration to the right anterior mustafa Psych: Normal affect and mood Limitations: no limitations Course Vital Signs 05/19/23 05/19/23 20:56 21:13 Temperature 98.5 F 98.3 F Pulse Rate 76 Respiratory 16 Rate Blood Pressure 144/91 O2 Sat by Pulse 100 Oximetry Medical Decision Making - Medical Decision Making Was pt. sent in by a medical professional or institution (, PA, REPAIR DEPARTMENT SUPERVISOR, urgent care, hospital, or [place] health care facility...) When possible be specific @ -No Did you speak to anyone other than the patient for history (EMS, parent, family, police, friend...)? What history was obtained from this source @ -No Did you review nursing and triage notes (agree or disagree)? Why? @ -I reviewed and agree with nursing and triage notes Were old charts reviewed (outside hosp., previous admission, EMS record, old EKG, old radiological studies, urgent care reports/EKG's, [place] health care facility records)? Report findings @ -No old charts were reviewed Differential Diagnosis (chest pain, altered mental status, abdominal pain women, abdominal pain men, vaginal bleeding, musculoskeletal, weakness, fever, dyspnea, syncope, headache, dizziness, GI bleed, back pain, seizure, CVA, palpatations, mental health)? @ -not applicable EKG interpreted by me (3pts min.). @ -None done X-rays interpreted by me (1pt min.). @ -None done CT interpreted by me (1pt min.). @ -None done U/S interpreted by me (1pt. min.). @ -None done What testing was considered but not performed or refused? (CT, X-rays, U/S, labs)? Why? @ -None] What meds were considered but not given or refused? Why? @ -[None] Did you discuss the management of the patient with other professionals (professionals i.e. , PA, REPAIR DEPARTMENT SUPERVISOR, lab, RT, psych nurse, social welfare clerk, snaker, teacher, founder and chief technical officer, cyanide case hardener)? Give summary @ -[No] Was smoking cessation discussed for >3mins.? @ -[No] Was critical care preformed (if so, how long)? @ -[No] Were there social determinants of health that impacted care today? How? (Homelessness, low income, unemployed, alcoholism, drug addiction, transportation, low edu. Level, literacy, decrease access to med. care, half-way, rehab)? @ -[No] Was there de-escalation of care discussed even if they declined (Discuss DNR or withdrawal of care, Hospice)? DNR status @ -[No] What co-morbidities impacted this encounter? (DM, HTN, Smoking, COPD, CAD, Cancer, CVA, ARF, Chemo, Hep., AIDS, mental health diagnosis, sleep apnea, morbid obesity)? @ -[None] Was patient admitted / discharged? Hospital course, mention meds given and route, prescriptions, significant lab abnormalities, going to OR and other pertinent info. @ -43 Year-old female presents to the emergency department for right mustafa laceration after suffering a laceration from a box spring frame builder 3 days ago. Patient outside the window for laceration repair. Tetanus up-to-date. Patient given prophylactic antibiotics. No signs of infection Undiagnosed new problem with uncertain prognosis? @ -[No] Drug Therapy requiring intensive monitoring for toxicity (Heparin, Nitro, Insulin, Cardizem)? @ -[No] Were any procedures done? @ -No Diagnosis/symptom? Acute, or Chronic, or Acute on Chronic? Uncomplicated (without systemic symptoms) or Complicated (systemic symptoms)? @ -Right lower extremity laceration Side effects of treatment? @ -[No] Exacerbation, Progression, or Severe Exacerbation? @ -[No] Poses a threat to life or bodily function? How? (Chest pain, [place], [place], pneumonia, PE, COPD, DKA, ARF, appy, cholecystitis, CVA, Diverticulitis, Homicidal, Suicidal, threat to staff... and all critical care pts) @ -[No] Disposition Clinical Impression: Laceration Disposition: HOME SELF-CARE Condition: Good Instructions (If sedation given, give patient instructions): Laceration (ED) Prescriptions: Cephalexin [Keflex] 500 mg PO Q6HR 5 Days #20 cap Is patient prescribed a controlled substance at d/c from ED?: No Referrals: Ilda Darnell PAC [Primary Care Provider] - 1-2 days Time of Disposition: 21:39
== END 2023-05-19 22:56 | disposition home or self-care (01) ==
LOC: EC 20:55
DX: S81.811A Laceration without foreign body, right lower leg, initial encounter (principal); F17.200 Nicotine dependence, unspecified, uncomplicated; Z88.0 Allergy status to penicillin; Z88.8 Allergy status to other drugs, medicaments and biological substances; Z23 Encounter for immunization; W26.8XXA Contact with other sharp object(s), not elsewhere classified, initial encounter
CPT/HCPCS: 90471; 90715; 99282

== ENCOUNTER → 2023-08-13 | Outpatient (CLI) | payer OTHER ==
--- NOTE | 2023-08-13 10:23 | USB ---
Reason for Exam: Clinical finding. Patient History: Menarche at age 11. First Full-Term at age 19. Maternal grandmother had breast cancer. Risk Values: Juliann 5 year model risk: 0.5%. NCI Lifetime model risk: 7.9%. Prior Study Comparison: 04/09/2016 Bilateral Diagnostic Mammogram, [facility]. 12/04/2019 Bilateral Diagnostic Mammogram, [facility]. 03/19/2022 Bilateral MG 3D diag mammo w/cad RENA, [facility]. 03/19/2022 Bilateral US breast limited BILAT, [facility]. Findings: The whole breast of the left breast, the area of palpable concern of the right breast, the axilla of both breasts and the retroareolar of both breasts were scanned. Subcutaneous hypoechoic structure is unchanged from prior study measures 7 x 8 x 5 mm versus 7 x 5 x 8 mm previously and likely reflects a sebaceous cyst. No additional hypoechoic lesions are seen of the right breast. Left breast is free of solid or cystic mass. Correlation advised. Overall Assessment: Benign, BI-RAD 2 Management: Screening Mammogram of both breasts in 1 year. A clinical breast exam by your physician is recommended on an annual basis and results should be correlated with mammographic findings. This exam should not preclude additional follow-up of suspicious palpable abnormalities. Results were given to the patient verbally at the time of exam. Electronically signed and approved by: Dami Gutierrez M.D. Radiologis
--- NOTE | 2023-08-24 11:32 | MM ---
Reason for Exam: Clinical finding. Last mammogram was performed 1 year(s) and 5 month(s) ago. Indicated Problems: Lump or thickening of both sides. Patient History: Menarche at age 11. First Full-Term at age 19. Maternal grandmother had breast cancer. Risk Values: Juliann 5 year model risk: 0.5%. NCI Lifetime model risk: 7.9%. Tissue Density: The breast tissue is heterogeneously dense. This may lower the sensitivity of mammography. Findings: Analyzed By CAD. No evidence for mass or distortion. No suspicious calcifications seen. Ultrasound is recommended bilaterally. Clinical correlation advised. Overall Assessment: Incomplete: need additional imaging evaluation, BI-RAD 0 Management: Diagnostic Breast Ultrasound of both breasts. . Results were given to the patient verbally at the time of exam. Patient should continue monthly self-breast exams. A clinical breast exam by your physician is recommended on an annual basis. This exam should not preclude additional follow-up of suspicious palpable abnormalities. Note on Juliann scores and lifetime risk: 1. A Juliann score greater than 3% is considered moderate risk. If this is the case, consider specialist referral to assess eligibility for a risk reducing agent. 2. If overall lifetime risk for the development of breast cancer is 20% or higher, the patient may qualify for future screening with alternating mammogram and breast MRI. Electronically signed and approved by: Dami Gutierrez M.D. Radiologis
== END | disposition home or self-care (01) ==
LOC: RADMAMWWP 09:27
PROVIDERS: ATTEND Family Medicine
DX: R92.333 Mammographic heterogeneous density, bilateral breasts (principal); N63.20 Unspecified lump in the left breast, unspecified quadrant; N64.52 Nipple discharge; N64.4 Mastodynia; Z80.3 Family history of malignant neoplasm of breast
CPT/HCPCS: 77062; 77066

== ENCOUNTER 2024-03-10 21:50 | Emergency (ER) | payer OTHER ==
[2024-03-10 22:18] VITALS: RESP 20
--- NOTE | 2024-03-10 22:34 | ED ---
Eye Problem HPI - General Chief complaint: Eye Problems Stated complaint: Irritation R Eye Time Seen by Provider: 03/10/24 22:34 Source: patient, RN notes reviewed Mode of arrival: ambulatory Limitations: no limitations - History of Present Illness Initial comments: 43-year-old female presented to ER with a chief complaint of right eye irritation. She states has been ongoing for about a week and a half. Was seen by PCP and started on Claritin and ofloxacin eyedrops. She states it feels like there is a foreign body in her eye. Denies any known injuries or traumas. She denies any periorbital swelling, fevers, chills, double blurry vision, pain with ocular motions, chest pain, shortness breath, abdominal pain or peripheral edema. - Related Data Home Medications Medication Instructions Recorded Confirmed Doxylamine Succinate [Unisom] 25 mg PO HS 06/10/23 06/10/23 Previous Rx's Medication Instructions Recorded Omeprazole [PriLOSEC] 20 mg PO AC-BRKFST #90 cap 06/15/23 Allergies Allergy/AdvReac Type Severity Reaction Status Date / Time metoclopramide [From Reglan] Allergy Hallucinati Verified 03/10/24 22:18 ons Penicillins Allergy Unknown Verified 03/10/24 22:18 Childhood Review of Systems ROS Statement: Those systems with pertinent positive or pertinent negative responses have been documented in the HPI. ROS Other: All systems not noted in ROS Statement are negative. Past Medical History Past Medical History: GERD/Reflux, Thyroid Disorder Additional Past Medical History / Comment(s): recent MRI "showed something" per pt., c/o abd. pain & cramping when eats, past hx. heart murmur, History of Any Multi-Drug Resistant Organisms: None Reported Past Surgical History: Cholecystectomy, Tubal Ligation, Uterine Ablation Additional Past Surgical History / Comment(s): uterine ablation Past Anesthesia/Blood Transfusion Reactions: Postoperative Nausea & Vomiting (PONV) Additional Past Anesthesia/Blood Transfusion Reaction / Comment(s): slow to wake up Past Psychological History: No Psychological Hx Reported Smoking Status: Current every day smoker Past Alcohol Use History: Rare Past Drug Use History: None Reported General Exam - General Exam Comments Initial Comments: Visual Physical Exam Vital signs reviewed General: Well-appearing, nontoxic, no acute distress. Head: Normocephalic, atraumatic Eyes: PERRLA, EOMI ENT: Airway patent Chest: Nonlabored breathing Skin: No visual rash, normal skin tone Neuro: Alert and oriented 3 Musculoskeletal: No gross abnormalities Limitations: no limitations General appearance: alert, in no apparent distress Head exam: Present: atraumatic, normocephalic, normal inspection Eye exam: Present: normal appearance, PERRL, EOMI. Absent: scleral icterus, conjunctival injection, periorbital swelling Pupils: Present: normal accommodation (5 mm bilaterally), other (Fluorescein stain negative for acute uptake. Lid inversion negative) ENT exam: Present: normal exam, mucous membranes moist Neck exam: Present: normal inspection. Absent: tenderness, meningismus, lymp hadenopathy Respiratory exam: Present: normal lung sounds bilaterally. Absent: respiratory distress, wheezes, rales, rhonchi, stridor Cardiovascular Exam: Present: regular rate, normal rhythm, normal heart sounds. Absent: systolic murmur, diastolic murmur, rubs, gallop, clicks Skin exam: Present: warm, dry, intact, normal color. Absent: rash Course Vital Signs 03/10/24 03/11/24 22:15 00:50 Temperature 98.3 F 98.1 F Pulse Rate 79 82 Respiratory 20 20 Rate Blood Pressure 113/70 115/72 O2 Sat by Pulse 100 100 Oximetry Medical Decision Making - Medical Decision Making I performed the quick note portion of this chart. Electronically signed by Eulalia José PA-C Was pt. sent in by a medical professional or institution ([facility], [employer] REVIEWER [employer]ETERAN, urgent care, hospital, or prison...) When possible be specific @ -No Did you speak to anyone other than the patient for history (EMS, parent, family, police, friend...)? What history was obtained from this source @ -No Did you review nursing and triage notes (agree or disagree)? Why? @ -I reviewed and agree with nursing and triage notes Were old charts reviewed (outside hosp., previous admission, EMS record, old EKG, old radiological studies, urgent care reports/EKG's, prison records)? Report findings @ -No old charts were reviewed Differential Diagnosis (chest pain, altered mental status, abdominal pain women, abdominal pain men, vaginal bleeding, weakness, fever, dyspnea, syncope, headache, dizziness, GI bleed, back pain, seizure, CVA, palpatations, mental health, musculoskeletal)? @ -Corneal abrasion, ocular foreign body, hyphema, conjunctivitis, globe rupture, acute angle-closure glaucoma this list is not meant to be all-inclusive EKG interpreted by me (3pts min.). @ -None X-rays interpreted by me (1pt min.). @ -None done CT interpreted by me (1pt min.). @ -None done U/S interpreted by me (1pt. min.). @ -None done What testing was considered but not performed or refused? (CT, X-rays, U/S, labs)? Why? @ -None What meds were considered but not given or refused? Why? @ -None Did you discuss the management of the patient with other professionals (professionals i.e. , PA, APPEALS REVIEWER VETERAN, lab, RT, psych nurse, dialysis social worker, care nurse rn, teacher, motor equipment commanding officer, case hardener)? Give summary @ -No Was smoking cessation discussed for >3mins.? @ -I discussed smoking cessation for greater than 3 minutes. The risk of smoking were discussed with the patient including but not limited to risks of cancer, stroke, coronary artery disease and COPD. Also discussed with patient were multiple methods of quitting smoking. Lastly we discussed the financial cost of smoking. Was critical care preformed (if so, how long)? @ -No Were there social determinants of health that impacted care today? How? (Homelessness, low income, unemployed, alcoholism, drug addiction, transportation, low edu. Level, literacy, decrease access to med. care, usp, rehab)? @ -No Was there de-escalation of care discussed even if they declined (Discuss DNR or withdrawal of care, Hospice)? DNR status @ -No What co-morbidities impacted this encounter? (DM, HTN, Smoking, COPD, CAD, Cancer, CVA, ARF, Chemo, Hep., AIDS, mental health diagnosis, sleep apnea, morbid obesity)? @ -Smoker Was patient admitted / discharged? Hospital course, mention meds given and route, prescriptions, significant lab abnormalities, going to OR and other pertinent info. @ -Discharge. 43-year-old female presented to the ER with a chief complaint of right eye irritation. This been ongoing for the past week and a half. Patient is currently taking Claritin and ofloxacin eyedrops for symptom control prescribed by PCP. Vital stable. Pupils equal round and reactive. Intact extraocular motions without pain. Fluorescein stain negative for acute uptake. Lid inversion negative for foreign body. No periorbital tenderness or edema. No conjunctival injection or purulent drainage present. Right eye flushed with normal saline. Visual acuity OD 20/50, OS 20/40. No foreign body visualized. Symptoms believed to be possibly allergic in nature. Advised patient to continue using ofloxacin and Claritin for symptom control. I strongly advised her to follow-up with automobile mechanic assistant, referrals given. Strict return parameters discussed. Patient discharged in stable condition with follow-up to ophthalmology/PCP. Patient verbally expressed understanding agree with care plan. Case discussed with ED attending, Dr. Mark. Undiagnosed new problem with uncertain prognosis? @ -No Drug Therapy requiring intensive monitoring for toxicity (Heparin, Nitro, Ins ulin, Cardizem)? @ -No Were any procedures done? @ -No Diagnosis/symptom? @ -Foreign body sensation right eye Acute, or Chronic, or Acute on Chronic? @ -Acute Uncomplicated (without systemic symptoms) or Complicated (systemic symptoms)? @ -Uncomplicated Side effects of treatment? @ -No Exacerbation, Progression, or Severe Exacerbation? @ -No Poses a threat to life or bodily function? How? (Chest pain, [place], [place], pneumonia, PE, COPD, DKA, ARF, appy, cholecystitis, CVA, Diverticulitis, Homicidal, Suicidal, threat to staff... and all critical care pts) @ -No Disposition Clinical Impression: Foreign body sensation, right eye Disposition: HOME SELF-CARE Condition: Stable Instructions (If sedation given, give patient instructions): How to Use Eye Drops (ED) Additional Instructions: Continue using eyedrops and Claritin for symptom control. I recommend you follow-up with ophthalmology, referral given. Return to the ER for any new or worsening concerns. Is patient prescribed a controlled substance at d/c from ED?: No Referrals: Gustavo Ochoa MD [Primary Care Provider] - 1-2 days Jim Tejeda MD [STAFF PHYSICIAN] - 1-2 days Guero Cueto DO [Doctor of Osteopathic Medicine] - 1-2 days Aury Nicole MD [STAFF PHYSICIAN] - 1-2 days Manny Lozano MD [STAFF PHYSICIAN] - 1-2 days Time of Disposition: 00:27
[2024-03-10] MEDS: FLUORESCEIN STRIPS 1 MG STRIP RIGHT EYE ONE (23:18)
[2024-03-10] MEDS: PROPARACAINE 0.5% OPHTH DROPS 15 ML BTL RIGHT EYE STA (23:18)
[2024-03-11 00:53] VITALS: BP 115/72; PULSE 82; TEMP 98.1
== END 2024-03-11 00:53 | disposition home or self-care (01) ==
LOC: EC 21:50
DX: H57.8A1 Foreign body sensation, right eye (principal); F17.200 Nicotine dependence, unspecified, uncomplicated; Z88.0 Allergy status to penicillin; Z88.8 Allergy status to other drugs, medicaments and biological substances; Z90.49 Acquired absence of other specified parts of digestive tract
CPT/HCPCS: 99283